=== PATIENT | female | born 1995 | race Caucasian/White ===

== ENCOUNTER 2019-09-11 | Emergency (ER) | payer BC ==
[~2019-09-11] MED LIST: AEROCHAMBER PLUS INH; AMOXICILLIN/CL875 MG PO; AMOXICILLIN500 MG PO; CALAN40 MG; CIPROFLOXACN500 MG PO; CORTISPORIN OTI10 ML OT; DOXYCYCLINE HY100 MG PO; FLUTICASONE50 MCG; GABAPENTIN300 MG PO; MAXAIR AUTOH200 MCG IN; MOTRIN600 MG/TAB PO; MUPIROCIN2 % EX; NO HOME MEDS; OMNICEF300 MG OR; PYRIDIUM200 MG PO; SINGULAIR; SINGULAIR PO; TOBRAMYCIN0.3 % OD; TOBREX0.3 % OP; TOPAMAX25 MG PO; TYLENOL325 MG; VENTOLIN HF1 IN; VIGAMOX OD; [UNRECOGNIZED DRUG - OTHER]; birth control
[2019-09-11] MEDS ORDERED: ONDANSETRON4 MG PO (22:15)
== END 2019-09-11 22:34 | disposition home or self-care (01) | DRG 203 ==
DX: J45.909 Unspecified asthma, uncomplicated (principal); R09.1 Pleurisy; I10 Essential (primary) hypertension

== ENCOUNTER 2022-11-11 13:18 | Emergency (ER) | payer OTHER ==
[~2022-11-11] VITALS: Ht 167.6 cm; Wt 120.2 kg
[~2022-11-11 13:18] MED LIST changes: +ONDANSETRON4 MG PO
[2022-11-11 14:35] LABS: URINE BILIRUBIN - DIPSTICK NEGATIVE (NEGATIVE); URINE BLOOD DIPSTICK LARGE (NEGATIVE); URINE CLARITY CLEAR; URINE COLOR YELLOW; URINE GLUCOSE - DIPSTICK NEGATIVE (NEGATIVE); URINE KETONE NEGATIVE (NEGATIVE); URINE LEUK ESTERASE TRACE (Negative); URINE NITRITE - DIPSTICK POSITIVE (Negative); URINE PROTEIN - DIPSTICK NEGATIVE (NEG-TRACE); URINE SPECIFIC GRAVITY >=1.030; URINE UROBILINOGEN - DIPSTICK 0.2 E.U./dL (0.2)
[2022-11-11 14:38] VITALS: BP 131/60
[2022-11-11 14:49] LABS: URINE RBC 0-2 RBC/hpf (0-5)
[2022-11-11 14:50] LABS: URINE BACTERIA FEW hpf; URINE SQUAMOUS EPITHELIAL CELL FEW EPI/hpf (0-FEW); URINE WBC 0-2 WBC/hpf (0-5)
[2022-11-11 14:57] VITALS: BP 124/69
[2022-11-11 16:45] LABS: BASO% 0.3 % (0-3); EOS% 1.5 % (0-8); HEMATOCRIT 38.7 % (37.0-47.0); HEMOGLOBIN 12.6 g/dl (12.0-16.0); IMMATURE GRANULOCYTES 0.7 % (0.0-5.0); LYMPH% 25.8 % (15-41); MEAN CELL VOLUME 92.1 fL CALC (80.0-100.0); MEAN CORPUSCULAR HGB CONC 32.6 g/dL CAL (32.0-36.0); MONO% 7.9 % (2-13); NEUT# 5.62 thou/uL (2.00-7.15); NEUT% 63.8 % (42-76); RED BLOOD COUNT 4.2 mill/uL (4.20-5.60); RED CELL DISTRI WIDTH 12.4 % (11.5-15.5)
[2022-11-11 16:48] LABS: ALBUMIN 4.1 g/dL (3.2-5.0); ALKALINE PHOSPHATASE 48 u/l (38-126); BUN 16 mg/dL (7-17); BUN/CREATININE RATIO 24 (12-20 (CALC)); CARBON DIOXIDE 21 mmol/l (22-30); CHLORIDE 108 mmol/l (95-108); CREATININE 0.7 mg/dL (0.5-1.0); GFR FOR AFR.AMER. > 60 ML/MIN (>=60 (CALC)); GFR OTHER RACES > 60 ML/MIN (>=60 (CALC)); SGOT/AST 29 u/l (14-36); SODIUM 136 mmol/l (137-146); TOTAL PROTEIN 7.1 g/dL (6.3-8.2)
[2022-11-11 16:57] LABS: ANION GAP 12 (6-22 (CALC)); BILIRUBIN, TOTAL 0.6 mg/dL (0.02-1.3); POTASSIUM 4.9 mmol/l (3.5-5.1)
[2022-11-11] MEDS ORDERED: TRAMADOL HYDROC50 M1 PO (17:59)
[2022-11-11] MEDS ORDERED: NAPROXEN500 MG PO (17:59)
[2022-11-11 18:23] VITALS: BP 124/69
== END 2022-11-11 18:33 | disposition home or self-care (01) ==
LOC: ED 13:18
PROVIDERS: Family Medicine; Nurse Practitioner
DX: R10.9 Unspecified abdominal pain (principal); R10.2 Pelvic and perineal pain; N93.9 Abnormal uterine and vaginal bleeding, unspecified; I10 Essential (primary) hypertension; J45.909 Unspecified asthma, uncomplicated